=== PATIENT | male | born 1955 | race African-American/Black ===

== ENCOUNTER 2016-11-25 12:20 | Inpatient (IN) | payer OTHER ==
--- NOTE | ~2016-11-25 | DS ---
Unit #: [id number] #: [id number] Patient: DANIELA LIZARRAGA [id number] [place] [address] [id number] I MR#: [id number] NAME: DANIELA LIZARRAGA ROOM: [facility] Age: 61 Sex: M Admission Date: 11/25/2016 : 1955 Discharge Date: 12/01/2016 Attending Physician: Rogelio Fox M.D. DISCHARGE SUMMARY REASON FOR ADMISSION The patient is a 61-year-old male admitted with a recent relapse of psychotic symptoms secondary to a period of medication noncompliance exacerbated by abuse of alcohol and cocaine. HOSPITAL COURSE The patient is admitted to the [address] [place] [address] unit and restarted on previously prescribed medications including lithium and Zyprexa. [place] level was pending at the time of discharge. The patient's detox was an uneventful one and he showed slow but steady improvement though he did have some episodes where he refused to have labs done and refused medications which is out of character for him. Overall, his stay in the hospital was a fairly typical one. By 12/01, the patient was in bright spirits and exhibited no signs or symptoms of withdrawal. He reported significant reduction in auditory hallucinations and no suicidal ideation. Discharge was ordered. DISCHARGE DIAGNOSES 1. Chronic paranoid schizophrenia. 2. Chronic obstructive pulmonary disease. 3. Hard of hearing. FOLLOWUP CARE Followup to take place through the auspices of community mental health resources. DISCHARGE MEDICATIONS The patient is discharged on the following medications: 1. [place] 600 mg b.i.d. for mood stabilization. 2. Zyprexa 20 mg at h.s. for psychosis. 3. Albuterol 2 puffs q. 4 hours p.r.n. shortness of air. PROGNOSIS Fair. DIET AND ACTIVITY No dietary or physical restrictions were placed on the patient at the time of discharge. Unit #: [id number] #: [id number] Patient: DANIELA LIZARRAGA Dictated by..Tavares Fox M.D. CB/elvis TD: 12/01/2016 15:32 JOB #: [id number] DISCHARGE SUMMARY X Rogelio Fox MD DISCHARGE SUMMARY
--- NOTE | ~2016-11-25 | HP ---
Unit #: [id number] #: [id number] Patient: DANIELA LIZARRAGA [id number] [facility] [address] [place] [address] [id number] I MR#: [id number] NAME: DANIELA LIZARRAGA ROOM: P256 Age: 61 Sex: M Admission Date: 11/25/2016 : 1955 Attending Physician: Rogelio Fox M.D. Admitting Physician: Rogelio Fox M.D. HISTORY AND PHYSICAL HISTORY OF PRESENT ILLNESS The patient is a 61-year-old male who has been admitted to this facility for suicidal ideations. Patient is a poor historian so his history is taken from his chart and he has had other admissions to this facility for suicidal ideation. PAST MEDICAL HISTORY 1. Suicidal ideation. 2. COPD. 3. Patient is hearing impaired. PAST SURGICAL HISTORY None. ALLERGIES No known allergies. SOCIAL HISTORY Patient smokes less than 1/2 pack per day. He does have a history of polysubstance use but denies doing anything currently. FAMILY HISTORY Medically noncontributory. REVIEW OF SYSTEMS Patient is not answering my questions appropriately. There are no reports of nausea, vomiting, diarrhea, cough or increased temperature. CURRENT MEDICATIONS 1. Zyprexa 20 mg p.o. at night. 2. [place] 600 mg p.o. b.i.d. 3. Albuterol inhaler 90 mcg 2 puffs q.i.d. p.r.n. 4. Depakote, dose unknown. PHYSICAL EXAMINATION GENERAL: Patient is awake, alert, in no acute distress. VITAL SIGNS: Temperature 98.7, heart rate 74, respirations 20, blood pressure 129/85. HEIGHT: 5 feet 6 inches. WEIGHT: 135 pounds. SKIN: Warm, dry without any unusual rashes or lesions. HEENT: Head is atraumatic, normocephalic. Pupils equal, round, reactive. Extraocular movements are intact. No discharge from ears or nares. Unit #: [id number] #: [id number] Patient: DANIELA LIZARRAGA NECK: Supple. Trachea is midline. HEART: Regular rate and rhythm. LUNGS: Clear. ABDOMEN: Soft, nontender, nondistended. : Not done. EXTREMITIES: No clubbing, edema or cyanosis. NEUROLOGICAL: Cranial nerves II through XII intact. No focal deficits. Sensory and motor functioning grossly normal. Moves all extremities well. Coordination, gait is normal. Deep tendon reflexes intact. IMPRESSION Psychiatric admission. RECOMMENDATIONS PSYCHIATRIC: Will be per psychiatry. MEDICAL: I see no contraindications to participate in facility activities. MEDICAL PROGNOSIS Fair. MEDICAL CONDITION Stable. Dictated by... Ifeoma Olguin A.P.R.N. 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
--- NOTE | ~2016-11-25 | PN ---
Unit #: [id number] #: [id number] Patient: DANIELA LIZARRAGA [id number] [facility] [address] [place] [address] [id number] I MR#: [id number] NAME: DANIELA LIZARRAGA ROOM: [facility] Age: 61 Sex: M Admission Date: 11/25/2016 : 1955 Attending Physician: Rogelio Fox M.D. Admitting Physician: Gabriel Brar PROGRESS NOTES DATE 11/26/2016 DISCUSSION The patient is abed, resting comfortably. Staff reports that he refused labs and medications this morning which is unusual as the patient is usually quite cooperative in his interactions with peers and staff. Dictated by... Rogelio Fox M.D. CB/shaheed TD: 11/26/2016 13:07 JOB #: [id number] [facility] PROGRESS NOTES X Rogelio Fox MD PROGRESS NOTE
--- NOTE | ~2016-11-25 | PN ---
Unit #: [id number] #: [id number] Patient: DANIELA LIZARRAGA [id number] [facility] [address] [place] [address] [id number] I MR#: [id number] NAME: DANIELA LIZARRAGA ROOM: [facility] Age: 61 Sex: M Admission Date: 11/25/2016 : 1955 Attending Physician: Rogelio Fox M.D. Admitting Physician: Gabriel Brar PROGRESS NOTES DATE 11/29/2016 DISCUSSION The patient continues to complain of dysphoric mood but states that he is "trying" to feel better. He continues to endorse positive suicidal ideation. He is complaining of some shortness of air. I have instructed him to avail himself of his prescribed p.r.n. inhaler. Dictated by... Gabriel Brar TD: 11/29/2016 12:58 JOB #: [id number] [facility] PROGRESS NOTES X Rogelio Fox MD PROGRESS NOTE
--- NOTE | ~2016-11-25 | PN ---
Unit #: [id number] #: [id number] Patient: DANIELA LIZARRAGA [id number] [facility] [address] [place] [address] [id number] I MR#: [id number] NAME: DANIELA LIZARRAGA ROOM: [facility] Age: 61 Sex: M Admission Date: 11/25/2016 : 1955 Attending Physician: Rogelio Fox M.D. Admitting Physician: Gabriel Brar PROGRESS NOTES DATE 11/30/2016 DISCUSSION The patient is a bit brighter today and reports that he may be ready for discharge as early as tomorrow. He appears to be approaching his psychiatric baseline. Dictated by... Rogelio Fox M.D. CB/shaheed TD: 11/30/2016 13:02 JOB #: [id number] [facility] PROGRESS NOTES X Rogelio Fox MD PROGRESS NOTE
--- NOTE | ~2016-11-25 | PN ---
Unit #: [id number] #: [id number] Patient: DANIELA LIZARRAGA [id number] [facility] [address] [place] [address] [id number] I MR#: [id number] NAME: DANIELA LIZARRAGA ROOM: [facility] Age: 61 Sex: M Admission Date: 11/25/2016 : 1955 Attending Physician: Rogelio Fox M.D. Admitting Physician: Gabriel Brar PROGRESS NOTES DATE 11/27/2016 DISCUSSION The patient has been more compliant with medications and foster routine. He continues to state that he is "feeling bad" and continues to endorse both positive auditory hallucinations and suicidal ideation. Dictated by... Rogelio Fox M.D. CB/butch TD: 11/28/2016 02:02 JOB #: [id number] [facility] PROGRESS NOTES X Rogelio Fox MD X PROGRESS NOTE
--- NOTE | ~2016-11-25 | PN ---
Unit #: [id number] #: [id number] Patient: DANIELA LIZARRAGA [id number] [facility] [address] [place] [address] [id number] I MR#: [id number] NAME: DANIELA LIZARRAGA ROOM: [facility] Age: 61 Sex: M Admission Date: 11/25/2016 : 1955 Attending Physician: Rogelio Fox M.D. Admitting Physician: Gabriel Brar PROGRESS NOTES DATE 11/28/2016 DISCUSSION The patient continues to complain of dysphoric mood and suicidal ideation. He is still selectively compliant with medications but is generally pleasant and cooperative with peers and staff. We will check a lithium level on Monday and continue current treatment with suicide precautions in place. The patient exhibits little in the way of signs or symptoms of withdrawal at this point. Dictated by... Rogelio Fox M.D. CB/kamlesh TD: 11/28/2016 12:56 JOB #: [id number] [facility] PROGRESS NOTES X Rogelio Fox MD PROGRESS NOTE
--- NOTE | ~2016-11-25 | PA ---
Unit #: [id number] #: [id number] Patient: DANIELA LIZARRAGA [id number] [facility] [address] [place] [address] [id number] I MR#: [id number] NAME: DANIELA LIZARRAGA ROOM: P256 Age: 61 Sex: M Admission Date: 11/25/2016 : 1955 Date of Assessment: 11/25/2016 Attending Physician: Rogelio Fox M.D. Admitting Physician: Rogelio Fox M.D. PSYCHIATRIC ASSESSMENT IDENTIFYING INFORMATION The patient is a 61-year-old male well known to this physician. He was readmitted after presenting to this facility voicing positive suicidal ideation and increased use of alcohol and cocaine. CHIEF COMPLAINT None given. INFORMANTS(S) Patient, reliability is poor. HISTORY OF PRESENT ILLNESS The patient is a 61-year-old male well known to this physician from multiple previous admissions to this facility. He is readmitted after he had presented to [facility] voicing positive suicidal ideation and reporting recurrent abuse of alcohol and cocaine. He was also reporting positive auditory hallucinations. He claims to have been compliant with prescribed medications which include lithium carbonate and Zyprexa. When seen today, the patient continues to report auditory hallucinations of a command type telling him to harm himself though he appears rather comfortable. He exhibits little in the way of signs or symptoms of withdrawal. For more complete history of present illness, please refer to previously dictated notes. PAST PSYCHIATRIC HISTORY Reviewed, no changes. PAST MEDICAL HISTORY Reviewed, no changes. MEDICATIONS [place], albuterol, and Zyprexa. ALLERGIES None reported. FAMILY HISTORY Reviewed, no changes. SOCIAL HISTORY Reviewed, no changes. MENTAL STATUS EXAMINATION Unit #: [id number] #: [id number] Patient: DANIELA LIZARRAGA Examination at this time reveals the patient to be a small-statured somewhat disheveled male appearing somewhat older than her stated age. He is in no apparent physical distress at the time of examination. He is alert, awake, and oriented in all spheres. His mood is mildly dysphoric, his affect blunted. Speech is impoverished and somewhat difficult to understand secondary to the patient's hard of hearing status and notable speech impediment. No gross deficits in memory or cognition noted. Intelligence is judged to be in the average range based on fund of knowledge. The patient is generally cooperative during the interview. He continues to endorse positive suicidal ideation. He denies homicidal ideation. He reports positive auditory hallucinations of a command type. His judgment and insight appear to be somewhat impaired. He does not exhibit signs or symptoms of substance withdrawal at this point. ASSETS AND LIABILITIES The patient's assets are to be assessed. Liabilities: Lack of resources. DIAGNOSTIC IMPRESSION 1. Chronic paranoid schizophrenia. 2. Alcohol use disorder. 3. Cocaine use disorder. 4. Asthma. 5. Chronic obstructive pulmonary disease. 6. Hard of hearing. TREATMENT PLAN The patient remains hospitalized for safety and stabilization. Routine detoxification protocol for alcohol has been initiated, and we will restart the patient's previously prescribed medications checking lithium level along with other routine labs. ESTIMATED LENGTH OF STAY 5 to 7 days with followup to take place through the auspices of community mental health resources. Dictated by... Rogelio Fox M.D. ROBBY/shaheed TD: 11/25/2016 14:30 JOB #: [id number] PSYCHIATRIC ASSESSMENT X Rogelio Fox MD X PSYCHIATRIC ASSESSMENT
[~2016-11-25 12:20] MED LIST: DOXYCYCLINE PO; TESSALON200 MG PO; VIBRAMYCIN100 M1 PO; ZITHROMAX1 G/PKT PO
== END 2016-12-01 15:00 | disposition home or self-care (01) | DRG 885 ==
LOC: P2L 12:20
DX: F20.0 Paranoid schizophrenia (principal); J44.9 Chronic obstructive pulmonary disease, unspecified; J45.909 Unspecified asthma, uncomplicated; H91.90 Unspecified hearing loss, unspecified ear; F17.210 Nicotine dependence, cigarettes, uncomplicated

== ENCOUNTER 2017-02-06 | Inpatient (IN) | payer OTHER ==
--- NOTE | ~2017-02-06 | CO ---
Unit #: [id number] #: [id number] Patient: FAUSTO LIZARRAGA [id number] [place] [address] [id number] I MR#: [id number] NAME: FAUSTO LIZARRAGA ROOM: 15 Age: 61 Sex: M Admission Date: 02/06/2017 : 1955 Attending Physician: Rogelio Fox M.D. Primary Care Physician: Generic Doctor Not In System Consultation Date: 02/06/2017 CONSULTATION REPORT SUBJECTIVE Fausto is a 61-year-old who has complained of cough, productive of small amounts of sputum over the past 2 or 3 days. He denies any increased temperatures or shortness of breath. The patient was seen for his admission H and P on 02/06/2017. Please see H and P dated 02/06/2017 for complete history and exam. We will start Keflex 500 mg one p.o. t.i.d. x7 days. Dictated by... Dea Christianson PTavaresATavares-Karan. for Gabriel Martin/jessie TD: 02/08/2017 02:24 JOB #: [id number] CONSULTATION REPORT Page 1 of 1 X Dea Christianson CONSULTATION REPORT
--- NOTE | ~2017-02-06 | PN ---
Unit #: [id number] #: [id number] Patient: DANIELA LIZARRAGA [id number] [facility] [address] [place] [address] [id number] I MR#: [id number] NAME: DANIELA LIZARRAGA ROOM: 15 Age: 61 Sex: M Admission Date: 02/06/2017 : 1955 Attending Physician: Rogelio Fox M.D. Admitting Physician: Rogelio Fox M.D. Primary Care Physician: Generic Doctor Not In System [facility] PROGRESS NOTES DATE 02/08/2017 DISCUSSION The patient is abed resting comfortably today. He offers no new complaints and staff reports no management issues. He had implied to this physician that he will be ready for discharge on , and would expect we will likely discharge him tomorrow. Dictated by... Rogelio Fox M.D. CB/bzg TD: 02/08/2017 14:03 JOB #: [id number] [facility] PROGRESS NOTES Page 1 of 1 X Rogelio Fox MD X PROGRESS NOTE
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
--- NOTE | ~2017-02-06 | PN ---
Unit #: [id number] #: [id number] Patient: DANIELA LIZARRAGA [id number] [facility] [address] [place] [address] [id number] I MR#: [id number] NAME: DANIELA LIZARRAGA ROOM: 15 Age: 61 Sex: M Admission Date: 02/06/2017 : 1955 Attending Physician: Rogelio Fox M.D. Admitting Physician: Rogelio Fox M.D. Primary Care Physician: Generic Doctor Not In System [facility] PROGRESS NOTES DATE 02/07/2017 DISCUSSION The patient is abed resting comfortably today. Staff reports no management issues. Unfortunately, the patient does not have his hearing aids with him, and communication with him is virtually impossible apart from the fact that he has informed this physician that he will "probably be ready to leave . Dictated by... Rogelio Fox M.D. CB/bzg TD: 02/07/2017 15:01 JOB #: [id number] [facility] PROGRESS NOTES Page 1 of 1 X Rogelio Fox MD X PROGRESS NOTE
--- NOTE | ~2017-02-06 | HP ---
Unit #: [id number] #: [id number] Patient: FAUSTO LIZARRAGA [id number] [facility] [address] [place] [address] [id number] I MR#: [id number] NAME: FAUSTO LIZARRAGA ROOM: 15 Age: 61 Sex: M Admission Date: 02/06/2017 : 1955 Attending Physician: Rogelio Fox M.D. Admitting Physician: Rogelio Fox M.D. Primary Care Physician: Generic Doctor Not In System HISTORY AND PHYSICAL HISTORY OF PRESENT ILLNESS Fausto is a 61 year old admitted to [address] [place] [address] with psychotic behavior. He has had numerous admissions to this facility. He is poor historian so his history is taken from his chart. PAST MEDICAL HISTORY 1. COPD 2. The patient is hearing impaired PAST SURGICAL HISTORY Nothing reported ALLERGIES No known drug allergies. SOCIAL HISTORY Smokes less than one pack per day. Has a history of polysubstance abuse but denies anything currently. FAMILY HISTORY Medically noncontributory. REVIEW OF SYSTEMS He does not answer all questions appropriately. There are no reports of nausea, vomiting or diarrhea. He has had no cough or increased temperature. CURRENT MEDICATIONS 1. Detox protocol 2. Zyprexa 20 mg q.h.s. 3. [place] 600 mg b.i.d. 4. Proventil inhaler p.r.n. PHYSICAL EXAMINATION GENERAL: Alert, small-build elderly gentleman, in no apparent distress. VITAL SIGNS: Blood pressure 124/72, heart rate 120, respirations 16, temperature 98.6. WEIGHT: 150 pounds. HEIGHT: 5'6". SKIN: Warm and dry without rash or lesion. HEENT: Normocephalic. TMs not viewed. Oral and nasal passages clear. Conjunctivae clear. Pupils equal, round and reactive to light and Unit #: [id number] #: [id number] Patient: FAUSTO LIZARRAGA accommodation. Extraocular movements intact. NECK: Supple without lymphadenopathy or thyromegaly. HEART: Regular rate and rhythm without murmur. LUNGS: Clear. ABDOMEN: Soft, nontender. : Not done. EXTREMITIES: No evidence of cyanosis, clubbing or edema. Moves all extremities without focal deficit. NEUROLOGICAL: Unable to complete extended exam. He does move all extremities without focal deficit. Hand [place] is equal and gait is normal. IMPRESSION Psychiatric admission RECOMMENDATIONS PSYCHIATRIC: Per psychiatrist. MEDICAL: I see no contraindications to participating in facility's activities. MEDICAL PROGNOSIS Good. MEDICAL CONDITION Stable. Dictated by... Dea Christianson P.A.-C. for Gabriel Martin/butch TD: 02/07/2017 04:30 JOB #: [id number] HISTORY AND PHYSICAL Page 1 of 1 X Dea Christianson X HISTORY AND PHYSICAL
--- NOTE | ~2017-02-06 | DS ---
Unit #: [id number] #: [id number] Patient: DANIELA LIZARRAGA [id number] [facility] [address] [place] [address] [id number] I MR#: [id number] NAME: DANIELA LIZARRAGA ROOM: [facility] Age: 61 Sex: M Admission Date: 02/06/2017 : 1955 Discharge Date: 02/09/2017 Attending Physician: Rogelio Fox M.D. Primary Care Physician: Generic Doctor Not In System DISCHARGE SUMMARY REASON FOR ADMISSION The patient is a 61-year-old -[place]ir[place] male admitted with recurrence of auditory hallucinations and suicidal thinking. HOSPITAL COURSE The patient is admitted to the [address] [place] [address] unit and restarted on previously prescribed medications including Proventil HFA, lithium carbonate, and Zyprexa. The patient had not brought his hearing aids and communication was made even more arduous than during his usual hospital stays. The patient remains seclusive to room with little participation within the therapeutic milieu, but had informed this physician at the time of this admission that he would "probably be ready to go by ." Sure enough, the patient requested discharge on that date and it was so ordered. FINAL DIAGNOSES 1. Chronic paranoid schizophrenia. 2. Cocaine use disorder. 3. Chronic obstructive pulmonary disease. 4. Hard of hearing. DISPOSITION ON DISCHARGE Patient is discharged on the following medications: 1. Keflex 500 mg 3 times daily for upper respiratory infection. 2. Zyprexa 20 mg at bedtime for psychosis. 3. [place] carbonate 300 mg 2 tablets twice daily for mood stabilization. 4. Proventil HFA one puffs q.4 hours p.r.n. shortness of air. DIET AND ACTIVITY No dietary or physical restriction placed on patient at the time of discharge. FOLLOWUP He will followup through the auspices of community mental health resources. PROGNOSIS Is considered fair. Dictated by... Rogelio Fox M.D. Unit #: [id number] #: [id number] Patient: DANIELA LIZARRAGA ROBBY/ts TD: 02/10/2017 09:22 JOB #: [id number] DISCHARGE SUMMARY Page 1 of 1 X Rogelio Fox MD DISCHARGE SUMMARY
== END 2017-02-09 16:03 | disposition home or self-care (01) | DRG 885 ==
LOC: POF 08:20 → P1S 08:20 → P1E 08:48 → P1S 15:43
PROC: HZ2ZZZZ Detoxification Services for Substance Abuse Treatment (ICD-10-PCS; principal; 2017-02-06)
DX: F20.0 Paranoid schizophrenia (principal); R45.851 Suicidal ideations; F10.10 Alcohol abuse, uncomplicated; F14.10 Cocaine abuse, uncomplicated; H91.90 Unspecified hearing loss, unspecified ear; J44.9 Chronic obstructive pulmonary disease, unspecified; F17.210 Nicotine dependence, cigarettes, uncomplicated

== ENCOUNTER 2017-03-27 04:00 | Inpatient (IN) | payer OTHER ==
--- NOTE | ~2017-03-27 | DS ---
Unit #: [id number] #: [id number] Patient: DANIELA LIZARRAGA [id number] [facility] [address] [place] [address] [id number] I MR#: [id number] NAME: DANIELA LIZARRAGA ROOM: [facility] Age: 61 Sex: M Admission Date: 03/27/2017 : 1955 Discharge Date: 03/31/2017 Attending Physician: Rogelio Fox M.D. DISCHARGE SUMMARY REASON FOR ADMISSION The patient is a 61-year-old, single, male, admitted with recurrence of psychotic symptoms and abuse of alcohol and cocaine. HOSPITAL COURSE The patient was admitted to the [address] [place] [address] unit and restarted on previously prescribed medications including Zyprexa 20 mg at h.s. and lithium carbonate 600 mg b.i.d. His stay in the hospital was a fairly typical one. He remained seclusive to room, but exhibited little signs or symptoms of withdrawal, and there was no management problem. By 03/31/2017, the patient appeared to be at or near his psychiatric baseline. He denied psychotic symptoms or suicidal thinking, and exhibited no signs or symptoms of withdrawal. Discharge was ordered. FINAL DIAGNOSES Schizoaffective disorder; chronic obstructive pulmonary disease; cocaine use disorder; alcohol use disorder. DISPOSITION ON DISCHARGE The patient is discharged on the following medications: [place] carbonate 600 mg b.i.d. for mood stabilization, Zyprexa 20 mg at h.s. for mood stabilization, Proventil HFA one puff q.4 hours p.r.n. shortness of air. DISCHARGE INSTRUCTIONS No dietary or physical restrictions were placed upon the patient at the time of discharge. FOLLOWUP Followup will take place through the auspices of community mental health resources. PROGNOSIS The patient's prognosis remains guarded. Dictated by... Rogelio Fox M.D. CB/jessie TD: 04/02/2017 13:03 JOB #: [id number] Unit #: [id number] #: [id number] Patient: DANIELA LIZARRAGA DISCHARGE SUMMARY Page 1 of 1 X Rogelio Fox MD X DISCHARGE SUMMARY
--- NOTE | ~2017-03-27 | HP ---
Unit #: [id number] #: [id number] Patient: FAUSTO LIZARRAGA [id number] [place] [address] [id number] I MR#: [id number] NAME: FAUSTO LIZARRAGA ROOM: P114 Age: 61 Sex: M Admission Date: 03/27/2017 : 1955 Attending Physician: Rogelio Fox M.D. Admitting Physician: Rogelio Fox M.D. Primary Care Physician: Generic Doctor Not In System HISTORY AND PHYSICAL HISTORY OF PRESENT ILLNESS Fausto is a 61 year old, admitted to [address] [place] [address], reporting auditory hallucinations. His history is taken from his chart. PAST MEDICAL HISTORY 1. Chronic obstructive pulmonary disease. 2. Patient is hearing impaired. PAST SURGICAL HISTORY Nothing reported. ALLERGIES No known drug allergies. SOCIAL HISTORY He smokes one half packs per day, has a history of polysubstance abuse but denies anything currently. FAMILY HISTORY Medically noncontributory. REVIEW OF SYSTEMS He does not answer all questions appropriately. There are no reports of nausea, vomiting, or diarrhea. He has had no cough or increased temperature. CURRENT MEDICATIONS 1. Zyprexa 20 mg daily 2. [place] 600 mg b.i.d. 3. Milk of magnesia p.r.n. 4. Maalox p.r.n. 5. Tylenol p.r.n. 6. Proventil inhaler p.r.n. PHYSICAL EXAMINATION GENERAL: Alert, well-nourished, no apparent distress. VITAL SIGNS: Blood pressure 128/70, heart rate 80, respirations 16, and temperature 98.6. WEIGHT: 150 pounds. HEIGHT: 5 feet 8 inches. SKIN: Warm and dry without rash or lesion. Unit #: [id number] #: [id number] Patient: FAUSTO LIZARRAGA HEENT: Normocephalic. TMs not viewed. Oral and nasal passages clear. Conjunctivae clear. PERRLA. EOMs intact. NECK: Supple without lymphadenopathy or thyromegaly. HEART: Regular rate and rhythm without murmur. LUNGS: Clear. ABDOMEN: Soft, nontender. : Not done. EXTREMITIES: No evidence of cyanosis, clubbing or edema. Moves all without focal deficit. 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 IMPRESSION Psychiatric admission. RECOMMENDATIONS Psychiatric, per psychiatrist. MEDICAL I see no contraindications to participating in facility's activities. MEDICAL PROGNOSIS Good. MEDICAL CONDITION Stable. Dictated by... Dea Christianson P.A.-C. for Gabriel Martin/kamlesh TD: 03/28/2017 14:00 JOB #: [id number] HISTORY AND PHYSICAL Page 1 of 1 X Dea Christianson X HISTORY AND PHYSICAL
--- NOTE | ~2017-03-27 | PN ---
Unit #: [id number] #: [id number] Patient: DANIELA LIZARRAGA [id number] [facility] [address] [place] [address] [id number] I MR#: [id number] NAME: DANIELA LIZARRAGA ROOM: 14 Age: 61 Sex: M Admission Date: 03/27/2017 : 1955 Attending Physician: Rogelio Fox M.D. Admitting Physician: Gabriel Brar PROGRESS NOTES DATE 03/29/2017 DISCUSSION The patient remains seclusive to his room with little participation within therapeutic milieu, though his participation is limited by his severely limited hearing. The patient is no management problem per staff but has continued to endorse positive suicidal ideation. We continue current treatment. Dictated by... Rogelio Fox M.D. CB/manoj TD: 03/29/2017 14:41 JOB #: [id number] [facility] PROGRESS NOTES Page 1 of 1 X Rogelio Fox MD X PROGRESS NOTE
--- NOTE | ~2017-03-27 | PA ---
Unit #: [id number] #: [id number] Patient: DANIELA LIZARRAGA [id number] [facility] [address] [place] [address] [id number] I MR#: [id number] NAME: DANIELA LIZARRAGA ROOM: 14 Age: 61 Sex: M Admission Date: 03/27/2017 : 1955 Date of Assessment: 03/28/2017 Attending Physician: Rogelio Fox M.D. Admitting Physician: Rogelio Fox M.D. Primary Care Physician: Generic Doctor Not In System PSYCHIATRIC ASSESSMENT IDENTIFYING INFORMATION The patient is a 61-year-old male, well known to his physician from multiple previous admissions to this facility, he returns voicing positive suicidal ideation and abuse of alcohol and cocaine. INFORMANT(S) Chart, patient cannot be roused for interview. CHIEF COMPLAINT None given. HISTORY OF PRESENT ILLNESS The patient is a 61-year-old male, admitted in transfer from [facility]. The patient reports that he come to the hospital complaining of hearing voices telling him to harm himself by lying down in the middle of the street. The patient has a history of multiple previous admissions to this facility the last of which ended in January of this year. His currently prescribed medications include: 1. [place] carbonate 2. Zyprexa He claims to have been compliant with these medications. At the time of admission the patient's drug screen was positive for cocaine and cannabis. For a more complete history of present illness please refer to previously dictated notes. PAST PSYCHIATRIC HISTORY Reviewed and no changes. PAST MEDICAL HISTORY Reviewed and no changes. MEDICATIONS 1. Proventil HFA 2. Zyprexa 3. [place] carbonate ALLERGIES None. FAMILY HISTORY Reviewed and no changes. Unit #: [id number] #: [id number] Patient: DANIELA LIZARRAGA SOCIAL HISTORY Reviewed and no changes. MENTAL STATUS EXAM At this time reveals the patient to be a soundly sleeping male, appearing his stated age. He cannot be roused for interview. ASSETS To be assessed. LIABILITIES Lack of resources. DIAGNOSTIC IMPRESSION Amelia I: Schizoaffective disorder. Cocaine use disorder. Methamphetamine use disorder. Amelia II: Amelia III: COPD. Hard of hearing. TREATMENT PLAN The patient remains hospitalized for safety and stabilization, we will restart previously prescribed medications and will watch for any symptoms of withdrawal. The patient will participate in appropriate foster and milieu activities with suicide precautions in place, unfortunately his participation in the therapeutic milieu is generally limited by his severely impaired hearing. ESTIMATED LENGTH OF STAY IN THE HOSPITAL Jwsz-jw-ikplb days. Dictated by... Rogelio Fox M.D. Sidney TD: 03/28/2017 12:59 JOB #: [id number] PSYCHIATRIC ASSESSMENT Page 1 of 1 X Rogelio Fox MD X PSYCHIATRIC ASSESSMENT
--- NOTE | ~2017-03-27 | PN ---
Unit #: [id number] #: [id number] Patient: DANIELA LIZARRAGA [id number] [facility] [address] [place] [address] [id number] I MR#: [id number] NAME: DANIELA LIZARRAGA ROOM: P114 Age: 61 Sex: M Admission Date: 03/27/2017 : 1955 Attending Physician: Rogelio Fox M.D. Admitting Physician: Rogelio Fox M.D. Primary Care Physician: Generic Doctor Not In System [facility] PROGRESS NOTES DATE 03/30/2017 DISCUSSION The patient is a bit brighter today and is reporting reduction in suicidal ideation. He is more active within the therapeutic milieu and should he sustain progress with completion of detox, discharge will probably take place tomorrow. Dictated by... Rogelio Fox M.D. CB/elvis TD: 03/30/2017 15:49 JOB #: [id number] [facility] PROGRESS NOTES Page 1 of 1 X Rogelio Fox MD PROGRESS NOTE
[2017-03-28 13:52] LABS: BASOPHIL% 0.4 % (0-2.5); EOSINOPHIL# 0.3 X10e3 (0-0.7); EOSINOPHIL% 8.9 % (0.0-7.0); HEMOGLOBIN 13.8 gm/dL (13.0-16.0); LYMPHOCYTE# 1.1 X10e3 (1.0-3.5); LYMPHOCYTE% 32.8 % (17.0-45.0); MEAN CELL VOLUME 95.7 FL (83-96); MEAN CORPUSCULAR HEMOGLOBIN 31.5 PG (28-34); MEAN CORPUSCULAR HGB CONC 32.9 g/dL (30-36); MEAN PLATELET VOLUME 7.9 FL (6.5-11.5); MONOCYTE# 0.4 X10e3 (0-1.0); MONOCYTE% 11.8 % (3.0-12.0); NEUTROPHIL# 1.6 X10e3 (1.5-7.1); NEUTROPHIL% 46.1 % (40-75); PLATELET COUNT 211 X10e3 (140-420); RED BLOOD COUNT 4.38 X10e (3.90-5.60); RED CELL DISTRIBUTION WIDTH 14.6 % (11.0-15.5); WHITE BLOOD COUNT 3.5 X10e3 (4.0-10.5)
[2017-03-28 13:55] LABS: DIFF IND NO
[2017-03-28 14:02] LABS: ALBUMIN SERUM 3.1 g/dL (3.5-5.0); BILIRUBIN,TOTAL 1.1 mg/dL (0.2-2.0); BUN/CREATININE RATIO 11.25; CALCIUM SERUM 9.7 mg/dL (8.4-10.2); CREATININE SERUM 0.8 mg/dL (0.6-1.4); GLOM FILT RATE Estimated 110.2 mL/min (>60); POTASSIUM 3.7 mmol/L (3.5-5.1); PROTEIN TOTAL SERUM 7.2 g/dL (6.0-8.3)
== END 2017-03-31 16:35 | disposition home or self-care (01) | DRG 885 ==
LOC: P1S 14:09
PROVIDERS: Specialist
DX: F25.9 Schizoaffective disorder, unspecified (principal); F14.10 Cocaine abuse, uncomplicated; J44.9 Chronic obstructive pulmonary disease, unspecified; F10.10 Alcohol abuse, uncomplicated
CPT/HCPCS: 80053; 80178; 85025

== ENCOUNTER 2017-04-19 05:00 | Inpatient (IN) | payer OTHER ==
[~2017-04-19] VITALS: Ht 167.6 cm; Wt 68.0 kg
--- NOTE | ~2017-04-19 | PN ---
Unit #: [id number] #: [id number] Patient: DANIELA LIZARRAGA [id number] [facility] [address] [place] [address] [id number] I MR#: [id number] NAME: DANIELA LIZARRAGA ROOM: [facility] Age: 61 Sex: M Admission Date: 04/19/2017 : 1955 Attending Physician: Rogelio Fox M.D. Admitting Physician: Rogelio Fox M.D. Primary Care Physician: Generic Doctor Not In System [facility] PROGRESS NOTES DATE 04/23/2017 DISCUSSION The patient reports no psychotic symptoms when seen today and denies suicidal ideation. He exhibits little in the way of signs or symptoms of withdrawal and should he sustain progress discharge will take place tomorrow. Dictated by... Rogelio Fox M.D. CB/butch TD: 04/23/2017 22:27 JOB #: [id number] [facility] PROGRESS NOTES Page 1 of 1 X Rogelio Fox MD X PROGRESS NOTE
--- NOTE | ~2017-04-19 | PN ---
Unit #: [id number] #: [id number] Patient: DANIELA LIZARRAGA [id number] [facility] [address] [place] [address] [id number] I MR#: [id number] NAME: DANIELA LIZARRAGA ROOM: 84 Age: 61 Sex: M Admission Date: 04/19/2017 : 1955 Attending Physician: Rogelio Fox M.D. Admitting Physician: Rogelio Fox M.D. Primary Care Physician: Generic Doctor Not In System [facility] PROGRESS NOTES DATE 04/21/2017 DISCUSSION The patient is in somewhat brighter spirits today and more conversant with this physician. He requests large portions. Otherwise, offers no complaints requesting discharge "Monday." Dictated by... Rogelio Fox M.D. ROBBY/elvis TD: 04/21/2017 16:06 JOB #: [id number] [facility] PROGRESS NOTES Page 1 of 1 X Rogelio Fox MD X PROGRESS NOTE
--- NOTE | ~2017-04-19 | PA ---
Unit #: [id number] #: [id number] Patient: DANIELA LIZARRAGA [id number] [facility] [address] [place] [address] [id number] I MR#: [id number] NAME: DANIELA LIZARRAGA ROOM: [facility] Age: 61 Sex: M Admission Date: 04/19/2017 : 1955 Date of Assessment: 04/19/2017 Attending Physician: Rogelio Fox M.D. Admitting Physician: Rogelio Fox M.D. Primary Care Physician: Generic Doctor Not In System PSYCHIATRIC ASSESSMENT IDENTIFYING INFORMATION The patient is a 61-year-old male well known to this physician admitted to the [facility] Unit after he had presented to [facility] voicing suicidal ideation. CHIEF COMPLAINT None given. INFORMANT(S) Patient, reliability is fair. HISTORY OF PRESENT ILLNESS The patient is a 61-year-old male well known to this physician from multiple previous admissions to this facility last of which ended on 03/31/2017. The patient had returned to [facility] voicing positive suicidal ideation. He stated that he was hearing voices telling him to "lie down in the middle of the street." The patient also has a history of cocaine and alcohol abuse. When seen today, the patient offers little in the way of useful history. He is extremely hard of hearing and does not wear hearing aids. He did not report any abuse of cocaine but states that he has been drinking "a couple of beers a day." For more complete history of present illness, please refer to previously dictated notes. PAST PSYCHIATRIC HISTORY Reviewed, no changes. PAST MEDICAL HISTORY Reviewed, no changes. MEDICATIONS 1. Zyprexa. 2. [place] carbonate. 3. Proventil HFA. ALLERGIES None. FAMILY HISTORY Reviewed, no changes. SOCIAL HISTORY Reviewed, no changes. Unit #: [id number] #: [id number] Patient: DANIELA LIZARRAGA MENTAL STATUS EXAMINATION Examination at this time reveals the patient to be a thin small-statured male appearing his stated age. He is in no apparent physical distress at the time of examination. He is awake and alert but has such difficulty hearing that accurate assessment of orientation, etc., are not possible. He does continue to endorse positive suicidal ideation. ASSETS AND LIABILITIES The patient's assets: Poor compliance with treatment. Ongoing substance use. Lack of resources, financial stressors. DIAGNOSTIC IMPRESSION 1. Chronic paranoid schizophrenia. 2. Cocaine use disorder by history. 3. Alcohol use disorder. 4. Asthma. 5. Hard of hearing. TREATMENT PLAN The patient remains hospitalized for safety and stabilization. We will restart previously prescribed medications though the patient was participating in appropriate order of milieu activities, and we will watch for any signs of alcohol withdrawal. ESTIMATED LENGTH OF STAY 3 to 5 days. Dictated by... Rogelio Fox M.D. Salvatore TD: 04/19/2017 14:47 JOB #: [id number] PSYCHIATRIC ASSESSMENT Page 1 of 1 X Rogelio Fox MD X PSYCHIATRIC ASSESSMENT
--- NOTE | ~2017-04-19 | DS ---
Unit #: [id number] #: [id number] Patient: DANIELA LIZARRAGA [id number] [facility] [address] [place] [address] [id number] I MR#: [id number] NAME: DANIELA LIZARRAGA ROOM: [facility] Age: 61 Sex: M Admission Date: 04/19/2017 : 1955 Discharge Date: 04/24/2017 Attending Physician: Rogelio Fox M.D. Primary Care Physician: Generic Doctor Not In System DISCHARGE SUMMARY REASON FOR ADMISSION The patient is a 61-year-old male with a history of schizophrenia, cocaine abuse, admitted voicing suicidal ideation. Laboratory data included urine drug screen positive for cocaine. [place] level was pending at the time of discharge. HOSPITAL COURSE The patient was admitted to the [facility] unit and placed on suicide precautions. He was continued on previously prescribed home medications including Zyprexa, lithium and Proventil HFA. His stay in the hospital was a fairly typical one, his participation within the therapeutic milieu being significantly curtailed secondary to his deafness. By 04/24/2017 the patient was in brighter spirits and requested discharge, which was ordered. FINAL DIAGNOSES 1. Chronic paranoid schizophrenia. 2. Cocaine use disorder. 3. Alcohol use disorder. 4. Chronic obstructive pulmonary disease. FOLLOWUP CARE Followup will take place through the auspices of [facility]. DISCHARGE MEDICATIONS 1. Zyprexa 20 mg at bedtime for psychosis. 2. [place] carbonate 600 mg b.i.d. for mood stabilization. 3. Proventil HFA 1 puff q.4 h. p.r.n. shortness of air. PROGNOSIS Guarded. DIET AND ACTIVITY No dietary or physical restrictions placed on the patient at the time of discharge. Dictated by... Rogelio Fox M.D. Unit #: [id number] #: [id number] Patient: DANIELA LIZARRAGA CB/gz TD: 04/26/2017 13:23 JOB #: [id number] DISCHARGE SUMMARY Page 1 of 1 X Rogelio Fox MD X DISCHARGE SUMMARY
--- NOTE | ~2017-04-19 | HP ---
Unit #: [id number] #: [id number] Patient: FAUSTO LIZARRAGA [id number] [facility] [address] [place] [address] [id number] I MR#: [id number] NAME: FAUSTO LIZARRAGA ROOM: 84 Age: 61 Sex: M Admission Date: 04/19/2017 : 1955 Attending Physician: Rogelio Fox M.D. Admitting Physician: Rogelio Fox M.D. Primary Care Physician: Generic Doctor Not In System HISTORY AND PHYSICAL HISTORY OF PRESENT ILLNESS Fausto is a 61-year-old male admitted to [facility] on 04/19/2017 for auditory hallucinations. He has previous admission for the same most recently on 03/27/2017. I reviewed the history and physical from that admission and there are no changes. Dictated by... Shyanne Daniel TD: 04/20/2017 01:59 JOB #: [id number] HISTORY AND PHYSICAL Page 1 of 1 X CHRISTY WRIGHT APRN HISTORY AND PHYSICAL
--- NOTE | ~2017-04-19 | PN ---
Unit #: [id number] #: [id number] Patient: DANIELA LIZARRAGA [id number] [facility] [address] [place] [address] [id number] I MR#: [id number] NAME: DANIELA LIZARRAGA ROOM: [facility] Age: 61 Sex: M Admission Date: 04/19/2017 : 1955 Attending Physician: Rogelio Fox M.D. Admitting Physician: Rogelio Fox M.D. Primary Care Physician: Generic Doctor Not In System [facility] PROGRESS NOTES DATE 04/20/2017 DISCUSSION The patient is abed resting comfortably today. Spence his participation within the therapeutic milieu is limited by his hearing loss. Dictated by... Rogelio Fox M.D. CB/elvis TD: 04/20/2017 16:11 JOB #: [id number] [facility] PROGRESS NOTES Page 1 of 1 X Rogelio Fox MD X PROGRESS NOTE
--- NOTE | ~2017-04-19 | PN ---
Unit #: [id number] #: [id number] Patient: DANIELA LIZARRAGA [id number] [facility] [address] [place] [address] [id number] I MR#: [id number] NAME: DANIELA LIZARRAGA ROOM: [facility] Age: 61 Sex: M Admission Date: 04/19/2017 : 1955 Attending Physician: Rogelio Fox M.D. Admitting Physician: Rogelio Fox M.D. Primary Care Physician: Generic Doctor Not In System [facility] PROGRESS NOTES DATE 04/22/2017 DISCUSSION The patient is abed, resting comfortably. Staff reports no management issues but reports that his participation within the therapeutic milieu has been less than optimal. Dictated by... Rogelio Fox M.D. CB/shaheed TD: 04/22/2017 12:56 JOB #: [id number] [facility] PROGRESS NOTES Page 1 of 1 X Rogelio Fox MD X PROGRESS NOTE
[2017-04-20 10:29] LABS: AMPHETAMINE NEG (NEG); BARBITURATES NEG (NEG); BENZODIAZEPINES NEG (NEG); COCAINE POS (NEG); MARIJUANA NEG (NEG); OPIATES NEG (NEG); TRICYCLIC ANTIDEPRESSANTS NEG (NEG); U METHADONE NEG (NEG)
== END 2017-04-24 15:32 | DRG 885 ==
LOC: P1E 05:00
PROVIDERS: Specialist
DX: F20.0 Paranoid schizophrenia (principal); R45.851 Suicidal ideations; F10.10 Alcohol abuse, uncomplicated; J45.909 Unspecified asthma, uncomplicated; H91.90 Unspecified hearing loss, unspecified ear
CPT/HCPCS: 80307

== ENCOUNTER 2017-05-12 12:51 | Inpatient (IN) | payer OTHER ==
[~2017-05-12] VITALS: Ht 167.6 cm; Wt 68.0 kg
--- NOTE | ~2017-05-12 | PN ---
Unit #: [id number] #: [id number] Patient: DANIELA LIZARRAGA [id number] [facility] [address] [place] [address] [id number] I MR#: [id number] NAME: DANIELA LIZARRAGA ROOM: 31 Age: 61 Sex: M Admission Date: 05/12/2017 : 1955 Attending Physician: Rogelio Fox M.D. Admitting Physician: Rogelio Fox M.D. Primary Care Physician: Jayme Doctor Not In System [facility] PROGRESS NOTES DATE 05/14/2017 DISCUSSION The patient seems a bit brighter today but continues to endorse positive suicidal ideation and auditory hallucinations. We continue current treatment. Dictated by... Rogelio Fox M.D. CB/butch TD: 05/14/2017 22:53 JOB #: [id number] [facility] PROGRESS NOTES Page 1 of 1 X Rogelio Fox MD X PROGRESS NOTE
--- NOTE | ~2017-05-12 | PA ---
Unit #: [id number] #: [id number] Patient: DANIELA LIZARRAGA [id number] [facility] [address] [place] [address] [id number] I MR#: [id number] NAME: DANIELA LIZARRAGA ROOM: [facility] Age: 61 Sex: M Admission Date: 05/12/2017 : 1955 Date of Assessment: 05/13/2017 Attending Physician: Rogelio Fox M.D. Admitting Physician: Rogelio Fox M.D. Primary Care Physician: Generic Doctor Not In System PSYCHIATRIC ASSESSMENT IDENTIFYING INFORMATION The patient is a 61-year-old male admitted after he was found lying in the middle of [place]. INFORMANT(S) Chart and patient. RELIABILITY Good. CHIEF COMPLAINT None given. HISTORY OF PRESENT ILLNESS The patient is a 61-year-old white male admitted after he had been found lying in the middle of [place]. The patient was brought by EMS. The patient had reported auditory hallucinations commanding him to lie in the middle of the street during his last hospitalization but this is the first time he has acted on these thoughts. He claims to have been compliant with his prescribed medications but does admit to abuse of alcohol and cocaine recently. For a more complete history of present illness, please refer to previous dictated notes. PAST PSYCHIATRIC HISTORY Reviewed, no changes. FAMILY HISTORY/SOCIAL HISTORY Reviewed, no changes. MEDICAL HISTORY Reviewed, no changes. MEDICATION HISTORY 1. [place]. 2. Zyprexa. 3. Proventil. ALLERGIES None. MENTAL STATUS EXAM At this time, reveals the patient to be a thin, disheveled male appearing somewhat older than his stated age. He is in no Unit #: [id number] #: [id number] Patient: DANIELA LIZARRAGA apparent physical distress at the time of examination. He is awake, alert, oriented in all spheres. His mood is mildly dysphoric. His affect blunted. Speech is impoverished but generally relevant and coherent. There are no gross deficits in memory or cognition noted. Intelligence is judged to be in the average range based on fund of knowledge. The patient is generally cooperative during interview. He continues to endorse positive suicidal ideation. He denies homicidal ideation. He reports positive auditory hallucinations of command type. His judgement and insight appear to be significantly impaired. No signs of tardive dyskinesia noted. ASSETS AND LIABILITIES Patient's assets to be assessed. Liabilities, lack of resources. ADMITTING DIAGNOSES 1. Chronic paranoid schizophrenia. 2. Cocaine use disorder. 3. Chronic obstructive pulmonary disease. PSYCHIATRIC PLAN/TREATMENT GOALS The patient remains hospitalized for safety and stabilization. We will restart previously prescribed medications. I firmly suspect that the patient has not been compliant with prescribed medications outside the hospital despite his ____ to the contrary. Suicide precautions remain in place and we will watch for any signs of alcohol withdrawal. ESTIMATED LENGTH OF STAY Five to seven days. Dictated by... Rogelio Fox M.D. ROBBY/elvis TD: 05/13/2017 12:59 JOB #: [id number] PSYCHIATRIC ASSESSMENT Page 1 of 1 X Rogelio Fox MD X PSYCHIATRIC ASSESSMENT
--- NOTE | ~2017-05-12 | DS ---
Unit #: [id number] #: [id number] Patient: DANIELA LIZARRAGA [id number] [facility] [address] [place] [address] [id number] I MR#: [id number] NAME: DANIELA LIZARRAGA ROOM: [facility] Age: 61 Sex: M Admission Date: 05/12/2017 : 1955 Discharge Date: 05/17/2017 Attending Physician: Rogelio Fox M.D. Primary Care Physician: Generic Doctor Not In System DISCHARGE SUMMARY REASON FOR ADMISSION The patient is a 61-year-old male admitted after he had been found by police lying in the middle of [place]. HOSPITAL COURSE The patient was admitted to the [address] [place] [address] Unit and restarted on previously prescribed medications. Interestingly, the patient's lithium level on admission was 0.5 indicating some degree of compliance with medications outside the hospital. The patient did admit that he had abused alcohol and cocaine shortly prior to coming to the hospital. By 05/17/2017, the patient requested discharge from the hospital, and it was so ordered. FINAL DIAGNOSES 1. Chronic paranoid schizophrenia. 2. Chronic obstructive pulmonary disease. DISPOSITION ON DISCHARGE The patient was discharged on the following medications: 1. [place] carbonate 600 mg twice daily for mood stabilization. 2. Zyprexa 20 mg at bedtime for psychosis. 3. Proventil HFA 2 puffs q. 4 hours p.r.n. shortness of air. DIET AND ACTIVITY No dietary or physical restrictions placed on the patient at the time of discharge. FOLLOWUP Followup will take place through the auspices of community mental health resources. PROGNOSIS Remains guarded. Dictated by... Rogelio Fox M.D. ROBBY/shaheed TD: 05/17/2017 14:20 JOB #: [id number] Unit #: [id number] #: [id number] Patient: DANIELA LIZARRAGA DISCHARGE SUMMARY Page 1 of 1 X Rogelio Fox MD X DISCHARGE SUMMARY
--- NOTE | ~2017-05-12 | HP ---
Unit #: [id number] #: [id number] Patient: DANIELA LIZARRAGA [id number] [place] [address] [id number] I MR#: [id number] NAME: DANIELA LIZARRAGA ROOM: 31 Age: 61 Sex: M Admission Date: 05/12/2017 : 1955 Attending Physician: Rogelio Fox M.D. Admitting Physician: Rogelio Fox M.D. Primary Care Physician: Generic Doctor Not In System HISTORY AND PHYSICAL HISTORY OF PRESENT ILLNESS The patient is a 61-year-old male admitted to [address] [place] [address] on 05/12/2017 for hearing voices. Patient is hearing impaired. It was very difficult to get a history from him though much of his history was retrieved from the chart. PAST MEDICAL HISTORY 1. COPD. 2. Hearing impaired. PAST SURGICAL HISTORY None noted. ALLERGIES No known drug allergies. SOCIAL HISTORY Patient is on Social Security. He lives alone. He denies alcohol, tobacco and drug use. FAMILY HISTORY Noncontributory. REVIEW OF SYSTEMS CONSTITUTIONAL: No fever or chills. HEENT: Denies any sore throat, ear pain or runny nose. CARDIOVASCULAR: Denies chest pain, irregular heart rhythm or palpitations. CHEST: Denies shortness of breath or cough. No hemoptysis. GASTROINTESTINAL: Denies nausea, vomiting, diarrhea or chronic constipation. ENDOCRINE: Denies history of increased thirst or urination. No recent significant weight loss or gain. GENITOURINARY: Denies dysuria, frequency, or hematuria. SKIN: Denies any rashes. HEMATOLOGIC: Denies history of increased bleeding or bruising. MUSCULOSKELETAL: Denies any hot, swollen joints. No generalized muscle pain. NEUROLOGIC: Denies problems with vision or speech. No frequent, severe headaches. No numbness, tingling or weakness in any extremities. Denies loss of bladder or bowel control. CURRENT MEDICATIONS 1. [place]. 2. Zyprexa. Unit #: [id number] #: [id number] Patient: DANIELA LIZARRAGA 3. Proventil. PHYSICAL EXAMINATION GENERAL: He is awake, alert, oriented, in no acute distress. VITAL SIGNS: Temperature 98.2, heart rate 102, respirations 16, blood pressure 119/83. HEIGHT: 5 feet 6. WEIGHT: 150 pounds. SKIN: Warm and dry without rash or lesion. HEENT: Normocephalic. TMs not viewed. Oral and nasal passages clear. Conjunctivae clear. PERRLA. EOMs intact. NECK: Supple without lymphadenopathy or thyromegaly. HEART: Regular rate and rhythm without murmur. LUNGS: Clear. ABDOMEN: Soft, nontender. : Not done. EXTREMITIES: No evidence of cyanosis, clubbing or edema. Moves all without focal deficit. NEUROLOGICAL: Grossly within normal limits. Cranial Nerves: II: Visual escobedo are intact. III, IV AND : Extraocular movements are intact. Pupils are equal, round and reactive to light. V: Facial sensation is grossly normal. VII: Facial movements and expression are normal. VIII: Auditory acuity grossly intact. IX, X: Uvula is midline. Phonation is normal. XI: Patient shrugs shoulders and turns head normally. XII: Tongue protrudes in the midline. Sensory and Motor Function: Sensory and motor sensation is grossly normal. Motor: moves all extremities well. Coordination: Gait is normal. Deep Tendon Reflexes: Intact. IMPRESSION 1. Psychiatric admission. 2. Chronic obstructive pulmonary disease. 3. Hearing impaired. RECOMMENDATIONS PSYCHIATRIC: Per psychiatrist. MEDICAL: No contraindication to participate in facility's activities. MEDICAL PROGNOSIS Fair. MEDICAL CONDITION Stable. Dictated by... Shyanne Crooks/elvis TD: 05/13/2017 14:43 JOB #: [id number] Unit #: [id number] #: [id number] Patient: DANIELA LIZARRAGA HISTORY AND PHYSICAL Page 1 of 1 X DOMINIQUE AUGUSTIN APRN HISTORY AND PHYSICAL
--- NOTE | ~2017-05-12 | PN ---
Unit #: [id number] #: [id number] Patient: DANIELA LIZARRAGA [id number] [facility] [address] [place] [address] [id number] I MR#: [id number] NAME: DANIELA LIZARRAGA ROOM: [facility] Age: 61 Sex: M Admission Date: 05/12/2017 : 1955 Attending Physician: Rogelio Fox M.D. Admitting Physician: Rogelio Fox M.D. Primary Care Physician: Generic Doctor Not In System [facility] PROGRESS NOTES DATE 05/15/2017 DISCUSSION The patient is abed resting comfortably today. Staff reports no management issues but states that he has continued to endorse positive suicidal ideation. I am concerned that the patient did on this occasion actually respond to the voices and lie in the middle of a busy thoroughfare. This is an area of concern and we continue to watch the patient closely for any recurrence of psychosis or suicidal ideation. Dictated by... Rogelio Fox M.D. CB/elvis TD: 05/15/2017 13:14 JOB #: [id number] [facility] PROGRESS NOTES Page 1 of 1 X Rogelio Fox MD X PROGRESS NOTE
--- NOTE | ~2017-05-12 | PN ---
Unit #: [id number] #: [id number] Patient: DANIELA LIZARRAGA [id number] [facility] [address] [place] [address] [id number] I MR#: [id number] NAME: DANIELA LIZARRAGA ROOM: 31 Age: 61 Sex: M Admission Date: 05/12/2017 : 1955 Attending Physician: Rogelio Fox M.D. Admitting Physician: Rogelio Fox M.D. Primary Care Physician: Jayme Doctor Not In System [facility] PROGRESS NOTES DATE 05/16/2017 DISCUSSION The patient is today pushing for discharge. However, given the circumstances of admission, I feel as though at least one further day of observation is warranted as the patient has never actually made a suicide attempt prior to this hospitalization. Dictated by... Rogelio Fox M.D. CB/shaheed TD: 05/16/2017 15:00 JOB #: [id number] [facility] PROGRESS NOTES Page 1 of 1 X Rogelio Fox MD PROGRESS NOTE
== END 2017-05-17 15:13 | disposition home or self-care (01) | DRG 885 ==
LOC: P1S 15:55
DX: F20.0 Paranoid schizophrenia (principal); R45.851 Suicidal ideations; F14.10 Cocaine abuse, uncomplicated; J44.9 Chronic obstructive pulmonary disease, unspecified; H91.90 Unspecified hearing loss, unspecified ear
CPT/HCPCS: 80178

== ENCOUNTER 2017-05-30 09:00 | Inpatient (IN) | payer OTHER ==
[~2017-05-30] VITALS: Ht 167.6 cm; Wt 68.0 kg
--- NOTE | ~2017-05-30 | HP ---
Unit #: [id number] #: [id number] Patient: FAUSTO LIZARRAGA [id number] [facility] [address] [place] [address] [id number] I MR#: [id number] NAME: FAUSTO LIZARRAGA ROOM: P130 Age: 61 Sex: M Admission Date: 05/30/2017 : 1955 Attending Physician: Rogelio Fox M.D. Admitting Physician: Rogelio Fox M.D. Primary Care Physician: Generic Doctor Not In System HISTORY AND PHYSICAL Fausto is a 61 year old admitted to [address] [place] [address] with psychotic behavior. He has had numerous admissions to this facility for the same. Patient was seen and H and P dated 05/13/17 was reviewed. This is current. No changes. Please see H and P dated 05/13/17. Dictated by... Dea Christianson P.A.-C. for Gabriel Martin/elvis TD: 05/30/2017 17:54 JOB #: [id number] HISTORY AND PHYSICAL Page 1 of 1 X Dea Christianson HISTORY AND PHYSICAL
--- NOTE | ~2017-05-30 | PA ---
Unit #: [id number] #: [id number] Patient: DANIELA LIZARRAGA [id number] [facility] [address] [place] [address] [id number] I MR#: [id number] NAME: DANIELA LIZARRAGA ROOM: 30 Age: 61 Sex: M Admission Date: 05/30/2017 : 1955 Date of Assessment: 05/30/2017 Attending Physician: Rogelio Fox M.D. Admitting Physician: Rogelio Fox M.D. Primary Care Physician: Generic Doctor Not In System PSYCHIATRIC ASSESSMENT IDENTIFYING INFORMATION The patient is a 61-year-old male with history of schizophrenia and alcohol and cocaine abuse, admitted after he presented to [facility] voicing positive suicidal ideation. CHIEF COMPLAINT None given. INFORMANT(S) Chart. Patient cannot be aroused for interview. HISTORY OF PRESENT ILLNESS The patient is a 61-year-old single male well known to this physician. He has a history of alcohol dependence, cocaine abuse, and chronic paranoid schizophrenia. He was reporting positive auditory hallucinations telling him to lie down in the middle of the road and reported to [facility]. The patient has a history of originally having been found lying in [place] and hence his threats are taken with a bit more seriousness than perhaps previously. When seen today, the patient is abed resting comfortably, and attempts to arouse her were unsuccessful. He has been up much of the night. PAST PSYCHIATRIC HISTORY Reviewed, no changes. PAST MEDICAL HISTORY Reviewed, no changes. MEDICATIONS [place], Zyprexa, Proventil. ALLERGIES None. FAMILY HISTORY Reviewed, no changes. SOCIAL HISTORY Reviewed, no changes. MENTAL STATUS EXAMINATION Examination at this time reveals the patient to be a soundly sleeping disheveled, thin, male appearing his stated age. He is Unit #: [id number] #: [id number] Patient: DANIELA LIZARRAGA in no apparent physical distress at the time of examination. ASSETS AND LIABILITIES The patient's assets are to be assessed. Liabilities: Lack of resources, ongoing substance use. DIAGNOSTIC IMPRESSION 1. Chronic paranoid schizophrenia. 2. Alcohol use disorder. 3. Cocaine use disorder. 4. Chronic obstructive pulmonary disease. 5. Hard of hearing. TREATMENT PLAN The patient remains hospitalized for safety and stabilization. We will restart previously prescribed medications, and routine suicide precautions are in place. I will order CIWA protocol for the patient. ESTIMATED LENGTH OF STAY 5 to 7 days. The followup will take place through the auspices of community mental health resources. Dictated by... Rogelio Fox M.D. Salvatore TD: 05/30/2017 14:37 JOB #: [id number] PSYCHIATRIC ASSESSMENT Page 1 of 1 X Rogelio Fox MD X PSYCHIATRIC ASSESSMENT
--- NOTE | ~2017-05-30 | PN ---
Unit #: [id number] #: [id number] Patient: DANIELA LIZARRAGA [id number] [facility] [address] [place] [address] [id number] I MR#: [id number] NAME: DANIELA LIZARRAGA ROOM: 30 Age: 61 Sex: M Admission Date: 05/30/2017 : 1955 Attending Physician: Rogelio Fox M.D. Admitting Physician: Rogelio Fox M.D. Primary Care Physician: Generic Doctor Not In System [facility] PROGRESS NOTES DATE 06/01/2017 DISCUSSION The patient is abed resting comfortably today. Staff reports no management issues, but reports that the patient remains seclusive to room with little participation within the therapeutic milieu except at mealtime. We continue current treatment as the patient approaches his psychiatric baseline. He exhibits little in the way of signs or symptoms of withdrawal. Dictated by... Rogelio Fox M.D. CB/bzg TD: 06/01/2017 14:17 JOB #: [id number] [facility] PROGRESS NOTES Page 1 of 1 X Rogelio Fox MD X PROGRESS NOTE
--- NOTE | ~2017-05-30 | PN ---
Unit #: [id number] #: [id number] Patient: DANIELA LIZARRAGA [id number] [facility] [address] [place] [address] [id number] I MR#: [id number] NAME: DANIELA LIZARRAGA ROOM: P130 Age: 61 Sex: M Admission Date: 05/30/2017 : 1955 Attending Physician: Rogelio Fox M.D. Admitting Physician: Rogelio Fox M.D. Primary Care Physician: Generic Doctor Not In System [facility] PROGRESS NOTES DATE 05/31/2017 DISCUSSION The patient is abed today but offers no new complaints. He does admit that he had been "out of his medicine" prior to coming to the hospital leading to the recurrence of auditory hallucinations. He continues to endorse positive auditory hallucinations during today's interview. We continue current pharmacotherapy. Dictated by... Rogelio Fox M.D. CB/bzg TD: 05/31/2017 14:09 JOB #: [id number] [facility] PROGRESS NOTES Page 1 of 1 X Rogelio Fox MD X PROGRESS NOTE
--- NOTE | ~2017-05-30 | DS ---
Unit #: [id number] #: [id number] Patient: DANIELA LIZARRAGA [id number] [facility] [address] [place] [address] [id number] I MR#: [id number] NAME: DANIELA LIZARRAGA ROOM: 30 Age: 61 Sex: M Admission Date: 05/30/2017 : 1955 Discharge Date: 06/02/2017 Attending Physician: Rogelio Fox M.D. Primary Care Physician: Generic Doctor Not In System DISCHARGE SUMMARY REASON FOR ADMISSION The patient is a 61-year-old -[place] male admitted with recurrent auditory hallucinations, substance abuse with cocaine and alcohol. HOSPITAL COURSE The patient was admitted to the [address] [place] [address] unit and restarted on patient's prescribed home medications. Labs were pending at the time of discharge. The patient's stay in the hospital was a fairly typical one. He was restarted on medications and after about three days requested discharge from the hospital. It was so ordered. FINAL DIAGNOSES 1. Chronic paranoid schizophrenia. 2. Alcohol use disorder, 3. Cocaine use disorder. DISPOSITION ON DISCHARGE Patient discharged home on the following medications: 1. Festus carbonate 600 mg twice daily for mood stabilization. 2. Zyprexa 20 mg nightly for mood stabilization and psychosis. 3. Proventil HFA two puffs q.4 hours p.r.n. shortness of air. DIET AND ACTIVITY No dietary of physical restrictions placed on patient at the time of discharge. FOLLOWUP Followup will take place in the auspices of community medical resources. PROGNOSIS No patient's prognosis remains guarded given his poor compliant with treatment and ongoing substance abuse. Dictated by... Rogelio Fox M.D. Unit #: [id number] #: [id number] Patient: DANIELA LIZARRAGA CB/ts TD: 06/06/2017 11:05 JOB #: [id number] DISCHARGE SUMMARY Page 1 of 1 X Rogelio Fox MD X DISCHARGE SUMMARY
== END 2017-06-02 15:39 | disposition home or self-care (01) | DRG 885 ==
LOC: P1S 10:50
DX: F20.0 Paranoid schizophrenia (principal); F14.20 Cocaine dependence, uncomplicated; F10.20 Alcohol dependence, uncomplicated; J44.9 Chronic obstructive pulmonary disease, unspecified; H91.90 Unspecified hearing loss, unspecified ear

== ENCOUNTER 2017-06-08 06:00 | Inpatient (IN) | payer OTHER ==
[~2017-06-08] VITALS: Ht 167.6 cm; Wt 68.0 kg
--- NOTE | ~2017-06-08 | PN ---
Unit #: [id number] #: [id number] Patient: DANIELA LIZARRAGA [id number] [facility] [address] [place] [address] [id number] I MR#: [id number] NAME: DANIELA LIZARRAGA ROOM: P212 Age: 61 Sex: M Admission Date: 06/08/2017 : 1955 Attending Physician: Rogelio Fox M.D. Admitting Physician: Rogelio Fox M.D. Primary Care Physician: Generic Doctor Not In System [facility] PROGRESS NOTES DATE 06/12/2017 DISCUSSION The patient voices no new complaints when seen today. He is reporting reduction in auditory hallucinations and should he sustain progress discharge should take place as early tomorrow. Dictated by... Rogelio Fox M.D. CB/butch TD: 06/13/2017 05:15 JOB #: [id number] [facility] PROGRESS NOTES Page 1 of 1 X Rogelio Fox MD X PROGRESS NOTE
--- NOTE | ~2017-06-08 | PA ---
Unit #: [id number] #: [id number] Patient: DANIELA LIZARRAGA [id number] [facility] [address] [place] [address] [id number] I MR#: [id number] NAME: DANIELA LIZARRAGA ROOM: P212 Age: 61 Sex: M Admission Date: 06/08/2017 : 1955 Date of Assessment: 06/09/2017 Attending Physician: Rogelio Fox M.D. Admitting Physician: Rogelio Fox M.D. Primary Care Physician: Generic Doctor Not In System PSYCHIATRIC ASSESSMENT IDENTIFYING INFORMATION The patient is a 61-year-old, homeless, male, admitted after he had yet again voiced suicidal ideation. INFORMANT(S) Chart. Patient could not be aroused for interview. CHIEF COMPLAINT None given. HISTORY OF PRESENT ILLNESS The patient is a 61-year-old male well-known to this physician from multiple previous admissions to this facility, the last of which ended on 06/02/17. The patient returns claiming to have laid in the middle of [place] in response to command auditory hallucinations telling him to end his life in this fashion. The patient admits to abuse of alcohol during his brief interim outside the hospital. He remains homeless. For a more complete history of present illness, please refer to previous dictated notes. PAST PSYCHIATRIC HISTORY Reviewed, no changes. FAMILY HISTORY/SOCIAL HISTORY Reviewed, no changes. MEDICAL HISTORY Reviewed, no changes. MEDICATION HISTORY 1. [place]. 2. Zyprexa. 3. Proventil. ALLERGIES None. MENTAL STATUS EXAM At this time, reveals the patient to be a disheveled, thin, male, appearing his stated age. He does not arouse for interview. ASSETS AND LIABILITIES Patient's assets to be assessed. Liabilities, lack of resources, ongoing substance use. Unit #: [id number] #: [id number] Patient: DANIELA LIZARRAGA ADMITTING DIAGNOSES 1. Chronic paranoid schizophrenia. 2. Cocaine use disorder. 3. Alcohol use disorder. 4. Asthma. PSYCHIATRIC PLAN/TREATMENT GOALS The patient remains hospitalized for safety and stabilization. We will restart previously prescribed medications and suicide precautions remain in place. We will watch for any signs of substance withdrawal. Unfortunately, the patient's frequent readmissions to the hospital are evidence that secondary social studies teacher outside the hospital are failing this patient and I will look to involve the ACT team or some other agency in hopes of addressing the patient's frequent readmissions. Dictated by... Rogelio Fox M.D. ROBBY/elvis TD: 06/09/2017 15:11 JOB #: [id number] PSYCHIATRIC ASSESSMENT Page 1 of 1 X Rogelio Fox MD X PSYCHIATRIC ASSESSMENT
--- NOTE | ~2017-06-08 | PN ---
Unit #: [id number] #: [id number] Patient: DANIELA LIZARRAGA [id number] [facility] [address] [place] [address] [id number] I MR#: [id number] NAME: DANIELA LIZARRAGA ROOM: P212 Age: 61 Sex: M Admission Date: 06/08/2017 : 1955 Attending Physician: Rogelio Fox M.D. Admitting Physician: Rogelio Fox M.D. Primary Care Physician: Generic Doctor Not In System [facility] PROGRESS NOTES DATE 06/11/2017 DISCUSSION The patient remains seclusive to her room with participation within the therapeutic milieu. Staff reports no management issues. Today he has been compliant with medications. His detox continues uneventfully. Dictated by... Rogelio Fox M.D. CB/butch TD: 06/11/2017 23:56 JOB #: [id number] [facility] PROGRESS NOTES Page 1 of 1 X Rogelio Fox MD X PROGRESS NOTE
--- NOTE | ~2017-06-08 | DS ---
Unit #: [id number] #: [id number] Patient: DANIELA LIZARRAGA [id number] [facility] [address] [place] [address] [id number] I MR#: [id number] NAME: DANIELA LIZARRAGA ROOM: [facility] Age: 61 Sex: M Admission Date: 06/08/2017 : 1955 Discharge Date: 06/13/2017 Attending Physician: Rogelio Fox M.D. Primary Care Physician: Generic Doctor Not In System DISCHARGE SUMMARY REASON FOR ADMISSION The patient is a 61-year-old male with a history of alcohol and cocaine use, and chronic paranoid schizophrenia, admitted after he had presented to [facility] claiming to be suicidal with plan to lay down in the middle of [place]. HOSPITAL COURSE The patient was admitted to the [address] [place] [address] unit and placed on suicide precautions. Routine detoxification protocol was ordered and the patient was continued on home medications. The patient refused lab work and refused to provide urine drug screen. He remained seclusive to room with little participation within therapeutic milieu leaving only to consume meals. By 06/13/2017, the patient exhibited no signs or symptoms of withdrawal. He appeared to be at or near his psychiatric baseline and denied suicidal ideation. Discharge was ordered. FINAL DIAGNOSES Chronic paranoid schizophrenia, alcohol use disorder, cocaine use disorder. DISPOSITION ON DISCHARGE The patient is discharged on the following medications; lithium carbonate 600 mg b.i.d. for mood stabilization, Zydis 20 mg at bedtime for psychosis, Proventil HFA 2 puffs q.4 hours p.r.n. shortness of air. PROGNOSIS The patient's prognosis is considered remains guarded. FOLLOWUP Followup will take place through the auspices of community mental health resources. Dictated by... Rogelio Fox M.D. CB/kanul TD: 06/14/2017 00:26 JOB #: [id number] Unit #: [id number] #: [id number] Patient: DANIELA LIZARRAGA DISCHARGE SUMMARY Page 1 of 1 X Rogelio Fox MD X DISCHARGE SUMMARY
--- NOTE | ~2017-06-08 | PN ---
Unit #: [id number] #: [id number] Patient: DANIELA LIZARRAGA [id number] [facility] [address] [place] [address] [id number] I MR#: [id number] NAME: DANIELA LIZARRAGA ROOM: P212 Age: 61 Sex: M Admission Date: 06/08/2017 : 1955 Attending Physician: Rogelio Fox M.D. Admitting Physician: Rogelio Fox M.D. Primary Care Physician: Generic Doctor Not In System [facility] PROGRESS NOTES DATE 06/10/2017 DISCUSSION The patient is abed resting comfortably today and offers no new complaints. Staff reports no management issues but reports the patient has remained seclusive to room throughout much of his stay in the hospital as has been his pattern in the past. Dictated by... Rogelio Fox M.D. CB/elvis TD: 06/10/2017 12:16 JOB #: [id number] [facility] PROGRESS NOTES Page 1 of 1 X Rogelio Fox MD PROGRESS NOTE
--- NOTE | ~2017-06-08 | HP ---
Unit #: [id number] #: [id number] Patient: FAUSTO LIZARRAGA [id number] [facility] [address] [place] [address] [id number] I MR#: [id number] NAME: FAUSTO LIZARRAGA ROOM: P212 Age: 61 Sex: M Admission Date: 06/08/2017 : 1955 Attending Physician: Rogelio Fox M.D. Admitting Physician: Rogelio Fox M.D. Primary Care Physician: Generic Doctor Not In System HISTORY AND PHYSICAL NOTE Fausto is a 61 year old admitted to [address] [place] [address] with psychotic behavior. He has had numerous admissions to this facility for the same. The patient was seen and H and P dated 05/13/2017 was reviewed. This is current. No changes. Please see H and P dated 05/13/2017. Dictated by... eDa Christianson P.A.-C. for Gabriel Martin/butch TD: 06/08/2017 20:37 JOB #: [id number] HISTORY AND PHYSICAL Page 1 of 1 X Dea Christianson HISTORY AND PHYSICAL
== END 2017-06-13 17:50 | disposition home or self-care (01) | DRG 885 ==
LOC: P2S 13:40
PROC: HZ2ZZZZ Detoxification Services for Substance Abuse Treatment (ICD-10-PCS; principal; 2017-06-09)
DX: F20.0 Paranoid schizophrenia (principal); F14.10 Cocaine abuse, uncomplicated; F10.10 Alcohol abuse, uncomplicated; J45.909 Unspecified asthma, uncomplicated